=== PATIENT | female | born 1985 | race Caucasian/White ===

== ENCOUNTER 2016-12-14 22:57 | Emergency (ER) | payer MEDICAID ==
[2016-12-14 23:09] VITALS: BP 164/99; BMI 37.1
--- NOTE | 2016-12-14 23:28 | DR.GENAD ---
HPI - PCP Primary Care Physician: NFD - HPI Comment HPI Comment: PAIN GETTING WORSE. NO FEVER. NO DYSURIA. NAUSEATED BUT NO VOMITING. - Complaint/Symptoms Chief Complaint Doctors Comments: LOWER ABDOMINAL PAIN TIMES FEW DAYS, LEFT BREAST HAVE BEING HURTING LONGER. NO NIPPLE DRAINAGE. Chief Complaint:: PT STATES" FOR ABOUT 3 OR 4 DAYS MY LEFT SIDE OF MY CHEST FEELS LIKE IT HAS KNOTS IN IT AND MY STOMACH HAS BEEN CRAMPING" - Nurses notes reviewed Nurses Notes Review: Yes - Source History Provided: Patient - Mode of Arrival Mode of Arrival: Ambulatory - Timing Onset of Chief Complaint: 12/11/16 Came on: Gradually - Duration Duration: Constant Duration: Days - Severity Severity: Moderate PMH - PMH Past Medical History: Yes Past Medical History: Hypertension Past Surgical History: Yes Surgical History: - Family History History of Family Medical Conditions: Yes Family Medical History: Diabetes Mellitus, Cancer, Hypertension - Social History Alcohol Use: Occasionally Do you use any recreational Drugs:: No Lives With: Family Lives Where: Home - infectious screening In the last 2 months have you had wt loss of >10#?: NO Have you had fever, night sweats or hemotysis?: No Have you traveled outside the country in the last 6 months?: No Isolation: Standard ROS - Review of Systems Constitutional: No Symptoms Reported Eyes: No Symptoms Reported ENTM: No Symptoms Reported Respiratoy: Other (LEFT BREAST PAIN, NO NIPPLE DISCHARGE.) Cardiovascular: No Symptoms Reported Gastrointestinal/Abdominal: Abdominal Pain, Nausea. negative: Diarrhea, Vomiting Genitourinary: No Symptoms Reported. negative: Dysuria, Frequency, Hematuria Neurological: No Symptoms Reported Musculoskeletal: Muscle Pain Integumentary: Other (LEFT BREAST PAIN.) Hematologic/Lymphatic: No Symptoms Reported Endocrine: No Symptoms Reported All Other Systems: Reviewed and Negative PE - Vital Signs Vitals: Temperature 98.4 F Pulse Rate 106 Respiratory Rate 18 Blood Pressure 164/99 O2 Sat by Pulse Oximetry 98 - General Limitations: No Limitations General Appearance: Alert - Head Head Exam: Normal Inspection - Eyes Eye exam: Normal Appearance - ENT ENT Exam: Normal External Ear Exam TM/Canal Exam: Bilateral Normal Nose Exam: Normal Nose Exam Mouth Exam: Normal Inspection Throat Exam: Normal Inspection - Neck Neck Exam: Normal Inspection - Chest Chest Inspection: Symmetric Chest Wall Rise, Tenderness (TENDERNESS LEFT BREAST , NO NIPPLE DISCHARGE.) - Respiratory Respiratory Exam: Normal Lung Sounds Bilat Respiratory Exam: Bilateral Clear to Auscultation - Cardiovascular Cardiovascular Exam: Regular Rate, Normal Rhythm, Normal Heart Sounds - Abdominal Exam Abdominal Exam: Normal Bowel Sounds, Soft, Distention Abdominal Tenderness: RLQ, LLQ, Suprapubic, Mild - Extremities Extremities Exam: Normal Inspection - Back Back Exam: Normal Inspection - Neurologic Neurological Exam: Alert, Oriented X3 - Psychiatric Psychiatric Exam: Normal Affect, Normal Mood - Skin Skin Exam: Normal Color MDM - Differential Diagnosis Differential Diagnosis: ABDOMINAL PAIN, LEFT BREAST PAIN, UTI, KIDNEY STONE Course - Treatment Treatment: SEE ORDERS - Education/Counseling Education/Counseling: Patient, Education Educated On: Diagnosis, Needs for Follow Up ROR - Labs Reviewed Laboratory Results Reviewed?: Yes Result Diagrams: 12/14/16 23:45 12/14/16 23:45 Laboratory: WBC 9.2 X10^3/uL (3.6-10.0) 12/14/16 23:45 RBC 5.64 X10^6/uL (3.5-5.4) H 12/14/16 23:45 Hgb 15.9 g/dL (12.0-16.0) 12/14/16 23:45 Hct 47.4 % (36.0-47.0) H 12/14/16 23:45 MCV 84.0 fL (80.0-100.0) 12/14/16 23:45 MCH 28.2 pg (27.0-34.0) 12/14/16 23:45 MCHC 33.5 g/dL (33.0-35.0) 12/14/16 23:45 RDW 13.6 % (11.6-16.5) 12/14/16 23:45 Plt Count 206 X10^3/uL (150.0-450.0) 12/14/16 23:45 MPV 8.7 fL (7.4-11.0) 12/14/16 23:45 Neut % 66.1 % (42.0-75.0) 12/14/16 23:45 Lymph % 24.4 % (21.0-51.0) 12/14/16 23:45 [place] % 6.0 % (0.0-13.0) 12/14/16 23:45 Eos % 3.0 % (0.9-2.9) H 12/14/16 23:45 Baso % 0.5 % (0.2-1.0) 12/14/16 23:45 Neut # 6.1 x10^3/uL (2.2-4.8) H 12/14/16 23:45 Lymph # 2.2 X10^3/uL (1.3-2.9) 12/14/16 23:45 [place] # 0.5 x10^3/uL (0.3-0.8) 12/14/16 23:45 Eos # 0.3 x10^3/uL (0.0-0.2) H 12/14/16 23:45 Baso # 0.0 X10^3/uL (0.0-0.1) 12/14/16 23:45 Absolute Nucleated RBC 0.1 /100WBC 12/14/16 23:45 Sodium 141 mmol/L (136-145) 12/14/16 23:45 Corrected Sodium TNP 12/14/16 23:45 Potassium 3.8 mmol/L (3.5-5.1) 12/14/16 23:45 Chloride 103 mmol/L (98-107) 12/14/16 23:45 Carbon Dioxide 29.6 mmol/L (21-32) 12/14/16 23:45 BUN 14 mg/dL (7-18) 12/14/16 23:45 Creatinine 0.96 mg/dL (0.55-1.02) 12/14/16 23:45 Est GFR (MDRD) Af Amer > 60 (>60) 12/14/16 23:45 Est GFR (MDRD) Non-Af > 60 (>60) 12/14/16 23:45 Glucose 106 mg/dL (65-99) H 12/14/16 23:45 Calcium 9.2 mg/dL (8.5-10.1) 12/14/16 23:45 Corrected Calcium TNP 12/14/16 23:45 Total Bilirubin 0.50 mg/dL (0.2-1.0) 12/14/16 23:45 AST 23 Units/L (15-37) 12/14/16 23:45 ALT 28 Units/L (12-78) 12/14/16 23:45 Alkaline Phosphatase 83 Units/L (46-116) 12/14/16 23:45 Total Protein 8.9 g/dL (6.4-8.2) H 12/14/16 23:45 Albumin 4.1 g/dL (3.4-5.0) 12/14/16 23:45 Globulin 4.8 g/dL (2.5-4.5) H 12/14/16 23:45 Albumin/Globulin Ratio 0.9 Ratio (1.1-2.1) L 12/14/16 23:45 HCG, Qual Negative <10 mIU/mL 12/14/16 23:45 Specimen Type Clean catch urine 12/14/16 23:40 Urine Color Yellow (YELLOW) 12/14/16 23:40 Urine Appearance Cloudy (CLEAR) 12/14/16 23:40 Urine pH 6.0 (5.0 - 8.0) 12/14/16 23:40 Ur Specific [place] 1.020 (1.000-1.030) 12/14/16 23:40 Urine Protein 1+ (NEGATIVE) 12/14/16 23:40 Urine Glucose (UA) Negative (NEGATIVE) 12/14/16 23:40 Urine Ketones Negative (NEGATIVE) 12/14/16 23:40 Urine Occult Blood 2+ (NEGATIVE) 12/14/16 23:40 Urine Nitrite Negative (NEGATIVE) 12/14/16 23:40 Urine Bilirubin Negative (NEGATIVE) 12/14/16 23:40 Urine Urobilinogen 1+ (NORMAL) 12/14/16 23:40 Ur Leukocyte Esterase 3+ (NEGATIVE) 12/14/16 23:40 Urine RBC 3-5 /HPF (NEGATIVE) 12/14/16 23:40 Urine WBC 10-15 /HPF (NEGATIVE) 12/14/16 23:40 Ur Squamous Epith Cells Moderate /HPF (NEGATIVE) 12/14/16 23:40 Urine Bacteria 1+ /HPF (NEGATIVE) 12/14/16 23:40 Ur Culture Indicated? Yes/culture set up 12/14/16 23:40 - Diagnosis Discharge Problem: UTI (urinary tract infection), Mastitis - Discharge Plan Disposition: 01 HOME, SELF-CARE Condition: Stable Prescriptions: Ibuprofen [Motrin Tab 800 mg] 800 mg PO BID PRN #20 tab PRN Reason: Pain/Inflammation Sulfamethoxazole-Trimethoprim [BACTRIM DS TAB 800/160 MG *] 1 tab PO BID #20 tab - Follow ups/Referrals Follow ups/Referrals: NFD,None [Primary Care Provider] - 3 days - Instructions Instructions: Urinary Tract Infection, Mastitis, [id number] Additional Instructions: RETURN TO ED IF WORSE.
[2016-12-14 23:59] LABS: BASOPHILS % (AUTO) 0.5 % (0.2-1.0); EOSINOPHILS # (AUTO) 0.3 x10^3/uL (0.0-0.2); HEMATOCRIT 47.4 % (36.0-47.0); HEMOGLOBIN 15.9 g/dL (12.0-16.0); LYMPHOCYTES # (AUTO) 2.2 X10^3/uL (1.3-2.9); LYMPHOCYTES % (AUTO) 24.4 % (21.0-51.0); MEAN CORPUSCULAR HEMOGLOBIN 28.2 pg (27.0-34.0); MEAN CORPUSCULAR HGB CONC 33.5 g/dL (33.0-35.0); MEAN PLATELET VOLUME 8.7 fL (7.4-11.0); MONOCYTES # (AUTO) 0.5 x10^3/uL (0.3-0.8); NEUTROPHILS # (AUTO) 6.1 x10^3/uL (2.2-4.8); NEUTROPHILS % (AUTO) 66.1 % (42.0-75.0); PLATELET COUNT 206 X10^3/uL (150.0-450.0); RED BLOOD COUNT 5.64 X10^6/uL (3.5-5.4); RED CELL DISTRIBUTION WIDTH 13.6 % (11.6-16.5); WHITE BLOOD COUNT 9.2 X10^3/uL (3.6-10.0)
[2016-12-15 00:01] LABS: BILIRUBIN,URINE NEGATIVE (NEGATIVE); BLOOD/HEMOGLOBIN,URINE 2+ (NEGATIVE); GLUCOSE, URINE NEGATIVE (NEGATIVE); KETONES,URINE NEGATIVE (NEGATIVE); LEUKOCYTE ESTERASE ,URINE 3+ (NEGATIVE); NITRITES,URINE NEGATIVE (NEGATIVE); PROTEIN,URINE 1+ (NEGATIVE); UROBILINOGEN,URINE 1+ (NORMAL)
[2016-12-15 00:02] LABS: APPEARANCE,URINE CLOUDY (CLEAR); COLOR,URINE YELLOW (YELLOW)
[2016-12-15 00:07] LABS: BACTERIA,URINE 1+ /HPF (NEGATIVE); SQUAMOUS EPITHELIAL CELL,UR MODERATE /HPF (NEGATIVE)
[2016-12-15 00:08] LABS: ALANINE AMINOTRANSFERASE 28 Units/L (12-78); ALBUMIN 4.1 g/dL (3.4-5.0); ALKALINE PHOSPHATASE 83 Units/L (46-116); BLOOD UREA NITROGEN 14 mg/dL (7-18); CALCIUM 9.2 mg/dL (8.5-10.1); CARBON DIOXIDE 29.6 mmol/L (21-32); CHLORIDE 103 mmol/L (98-107); CREATININE 0.96 mg/dL (0.55-1.02); GLUCOSE 106 mg/dL (65-99); SERUM PREGNANCY TEST, QUAL NEGATIVE <10 mIU/mL; SODIUM 141 mmol/L (136-145); TOTAL PROTEIN 8.9 g/dL (6.4-8.2); eGFR BLACK RACES > 60 (>60); eGFR NON BLACK RACES > 60 (>60)
[2016-12-15 00:28] LABS: ASPARTATE AMINO TRANSFERASE 23 Units/L (15-37)
== END 2016-12-15 01:40 | disposition home or self-care (01) ==
LOC: ER 23:08
DX: N61.0 Mastitis without abscess (principal); N39.0 Urinary tract infection, site not specified
CPT/HCPCS: 36415; 80053; 81001; 84703; 85025; 87086; 99282; 99283

== ENCOUNTER 2016-12-26 16:33 | Emergency (ER) | payer MEDICAID ==
[2016-12-26 16:36] VITALS: BMI 37.1
--- NOTE | 2016-12-26 18:03 | DR.GENAD ---
HPI - PCP Primary Care Physician: NLD - Complaint/Symptoms Chief Complaint Doctors Comments: Patient states she just found out she is a few days and she has been spotting today when she wipes. States she is only having light spotting and it is less than her normal period. States she has not seen an OB doctor and she smokes 1/2 pack cigarettes daily and drink alcohol occasionally. She denies any recent trauma and states last sexual activity was about week ago. States her last menstrual period was two months ago. She denies dizziness, chest pain or SOb. Chief Complaint:: PATIENT IS EARLY PREG. AND STARTED TO HAVIN SOME SPOTTING THIS MORNING - Nurses notes reviewed Nurses Notes Review: Yes - Source History Provided: Patient - Mode of Arrival Mode of Arrival: Ambulatory - Timing Onset of Chief Complaint: 12/26/16 Came on: Gradually - Duration Duration: Intermittent How lon Duration: Days - Location Location: vaginal spotting - Severity Severity: Mild - Modifying Factors Worsens:: nothing Improves:: nothing PMH - PMH Past Medical History: Yes Past Medical History: Hypertension Past Surgical History: Yes Surgical History: - Family History History of Family Medical Conditions: Yes Family Medical History: Diabetes Mellitus, Cancer, Hypertension - Social History Does patient currently use any type of tobacco product: Yes Have you used tobacco products in the last 12 months: Yes Type of Tobacco Use: Cigarettes Does any household member use tobacco: No Alcohol Use: Occasionally Do you use any recreational Drugs:: No Lives With: Family Lives Where: Home - infectious screening In the last 2 months have you had wt loss of >10#?: NO Have you had fever, night sweats or hemotysis?: No Have you traveled outside the country in the last 6 months?: No Isolation: Standard ROS - Review of Systems Constitutional: No Symptoms Reported. negative: See HPI, Chills, Diaphoresis, Fever, Malaise, Weakness, Irritable, Fatigue, Loss of Appetite, Other Eyes: No Symptoms Reported ENTM: No Symptoms Reported Respiratoy: No Symptoms Reported Cardiovascular: No Symptoms Reported Gastrointestinal/Abdominal: No Symptoms Reported Genitourinary: No Symptoms Reported Neurological: No Symptoms Reported Musculoskeletal: No Symptoms Reported Integumentary: No Symptoms Reported Hematologic/Lymphatic: No Symptoms Reported Endocrine: No Symptoms Reported Psychiatric: No Symptoms Reported PE - Vital Signs Vitals: Temperature 98.7 F Pulse Rate 104 Respiratory Rate 20 Blood Pressure 166/107 O2 Sat by Pulse Oximetry 97 - General Limitations: No Limitations General Appearance: Alert, In No Apparent Distress, Obtunded - Head Head Exam: Normal Inspection, Atraumatic, Normocephalic - Eyes Eye exam: Normal Appearance, PERRL, EOMI. negative: Scleral Icterus, Conjunctival Injection, Nystagmus, Miosis, Mydrasis, Periorbital Swelling, Periorbital Tenderness, Other - ENT ENT Exam: Normal Exam, Normal Oropharynx, Normal External Ear Exam, Mucous Membranes Moist, TM's Normal Bilaterally External Ear Exam: Normal External Inspection TM/Canal Exam: Bilateral Normal Nose Exam: Normal Nose Exam Mouth Exam: Normal Inspection Throat Exam: Normal Inspection - Neck Neck Exam: Normal Inspection, Full ROM, Trachea Midline - Chest Chest Inspection: Normal Inspection, Symmetric Chest Wall Rise - Respiratory Respiratory Exam: Normal Lung Sounds Bilat Respiratory Exam: Bilateral Clear to Auscultation - Cardiovascular Cardiovascular Exam: Regular Rate, Normal Rhythm, Normal Heart Sounds - Abdominal Exam Abdominal Exam: Normal Inspection, Normal Bowel Sounds, Soft. negative: Distention, Tenderness, Guarding, Rebound, Rigidity, Dimnished Bowel Sounds, Hyperactive Bowel Sounds, Hypoactive Bowel Sounds, Organomegaly, Trauma, Incision, Ascites, Mass, Bruit, Pulsatile Mass, Hernia, Other Abdominal Tenderness: negative: RUQ, RLQ, LUQ, LLQ, Epigastrium, Suprapubic, Diffuse, Mild, Moderate, Severe, Other - Extremities Extremities Exam: Normal Inspection, Full ROM, Tenderness, Normal Capillary Refill - Neurologic Neurological Exam: Alert, Oriented X3, CN II-XII Intact, Normal Gait - Psychiatric Psychiatric Exam: Normal Affect, Normal Mood ROR - Labs Reviewed Laboratory Results Reviewed?: Yes (All labs results reviewed and discussed with patient.) Result Diagrams: 12/26/16 18:10 Laboratory: WBC 8.7 X10^3/uL (3.6-10.0) 12/26/16 18:10 RBC 5.34 X10^6/uL (3.5-5.4) 12/26/16 18:10 Hgb 14.9 g/dL (12.0-16.0) 12/26/16 18:10 Hct 43.9 % (36.0-47.0) 12/26/16 18:10 MCV 82.3 fL (80.0-100.0) 12/26/16 18:10 MCH 28.0 pg (27.0-34.0) 12/26/16 18:10 MCHC 34.0 g/dL (33.0-35.0) 12/26/16 18:10 RDW 13.8 % (11.6-16.5) 12/26/16 18:10 Plt Count 225 X10^3/uL (150.0-450.0) 12/26/16 18:10 MPV 8.8 fL (7.4-11.0) 12/26/16 18:10 Neut % 67.4 % (42.0-75.0) 12/26/16 18:10 Lymph % 22.9 % (21.0-51.0) 12/26/16 18:10 [place] % 7.4 % (0.0-13.0) 12/26/16 18:10 Eos % 1.5 % (0.9-2.9) 12/26/16 18:10 Baso % 0.8 % (0.2-1.0) 12/26/16 18:10 Neut # 5.9 x10^3/uL (2.2-4.8) H 12/26/16 18:10 Lymph # 2.0 X10^3/uL (1.3-2.9) 12/26/16 18:10 [place] # 0.6 x10^3/uL (0.3-0.8) 12/26/16 18:10 Eos # 0.1 x10^3/uL (0.0-0.2) 12/26/16 18:10 Baso # 0.1 X10^3/uL (0.0-0.1) 12/26/16 18:10 Absolute Nucleated RBC 0.1 /100WBC 12/26/16 18:10 HCG, Quant 327 mIU/mL (0-6) H 12/26/16 18:10 Specimen Type Clean catch urine 12/26/16 18:37 Urine Color Yellow (YELLOW) 12/26/16 18:37 Urine Appearance Clear (CLEAR) 12/26/16 18:37 Urine pH 5.0 (5.0 - 8.0) 12/26/16 18:37 Ur Specific [place] 1.025 (1.000-1.030) 12/26/16 18:37 Urine Protein 2+ (NEGATIVE) 12/26/16 18:37 Urine Glucose (UA) Negative (NEGATIVE) 12/26/16 18:37 Urine Ketones 1+ (NEGATIVE) 12/26/16 18:37 Urine Occult Blood 3+ (NEGATIVE) 12/26/16 18:37 Urine Nitrite Negative (NEGATIVE) 12/26/16 18:37 Urine Bilirubin Negative (NEGATIVE) 12/26/16 18:37 Urine Urobilinogen 2+ (NORMAL) 12/26/16 18:37 Ur Leukocyte Esterase 3+ (NEGATIVE) 12/26/16 18:37 Urine RBC 03 - 06 /HPF (NEGATIVE) 12/26/16 18:37 Urine WBC 04 - 08 /HPF (NEGATIVE) 12/26/16 18:37 Ur Squamous Epith Cells Numerous /HPF (NEGATIVE) 12/26/16 18:37 Amorphous Sediment 3+ /HPF (NEGATIVE) 12/26/16 18:37 Urine Bacteria 1+ /HPF (NEGATIVE) 12/26/16 18:37 Hyaline Casts Rare /LPF (NEGATIVE) 12/26/16 18:37 Ur Culture Indicated? No/not indicated 12/26/16 18:37 - Diagnosis Discharge Problem: Early stage of , Bleeding in early , Urinary tract infection , Tobacco abuse - Discharge Plan Disposition: 01 HOME, SELF-CARE Condition: Stable Prescriptions: Amoxicillin [AMOXIL CAP 500 MG *] 500 mg PO TID #30 cap - Follow ups/Referrals Follow ups/Referrals: NFD,None [Primary Care Provider] - 3 days ANGÉLICA LANDEROS [STAFF PHYSICIAN] - 3 days - Instructions Instructions: Urinary Tract Infection, Threatened Miscarriage, Vaginal Bleeding During , First Trimester, and Urinary Tract Infection
[2016-12-26 18:24] LABS: BASOPHILS # (AUTO) 0.1 X10^3/uL (0.0-0.1); BASOPHILS % (AUTO) 0.8 % (0.2-1.0); EOSINOPHILS # (AUTO) 0.1 x10^3/uL (0.0-0.2); EOSINOPHILS % (AUTO) 1.5 % (0.9-2.9); HEMATOCRIT 43.9 % (36.0-47.0); HEMOGLOBIN 14.9 g/dL (12.0-16.0); LYMPHOCYTES % (AUTO) 22.9 % (21.0-51.0); MEAN CORPUSCULAR VOLUME 82.3 fL (80.0-100.0); MEAN PLATELET VOLUME 8.8 fL (7.4-11.0); MONOCYTES # (AUTO) 0.6 x10^3/uL (0.3-0.8); MONOCYTES % (AUTO) 7.4 % (0.0-13.0); NEUTROPHILS # (AUTO) 5.9 x10^3/uL (2.2-4.8); NEUTROPHILS % (AUTO) 67.4 % (42.0-75.0); PLATELET COUNT 225 X10^3/uL (150.0-450.0); RED BLOOD COUNT 5.34 X10^6/uL (3.5-5.4); RED CELL DISTRIBUTION WIDTH 13.8 % (11.6-16.5); WHITE BLOOD COUNT 8.7 X10^3/uL (3.6-10.0)
[2016-12-26 18:50] LABS: BILIRUBIN,URINE NEGATIVE (NEGATIVE); BLOOD/HEMOGLOBIN,URINE 3+ (NEGATIVE); GLUCOSE, URINE NEGATIVE (NEGATIVE); KETONES,URINE 1+ (NEGATIVE); LEUKOCYTE ESTERASE ,URINE 3+ (NEGATIVE); NITRITES,URINE NEGATIVE (NEGATIVE); PROTEIN,URINE 2+ (NEGATIVE); UROBILINOGEN,URINE 2+ (NORMAL)
[2016-12-26 19:12] LABS: APPEARANCE,URINE CLEAR (CLEAR); COLOR,URINE YELLOW (YELLOW)
[2016-12-26 19:13] LABS: AMORPHOUS SEDIMENT,UR 3+ /HPF (NEGATIVE); BACTERIA,URINE 1+ /HPF (NEGATIVE); SQUAMOUS EPITHELIAL CELL,UR NUMEROUS /HPF (NEGATIVE)
[2016-12-26 19:14] LABS: HYALINE CASTS, URINE RARE /LPF (NEGATIVE)
[2016-12-26 19:34] VITALS: BP 151/79
== END 2016-12-26 19:34 | disposition home or self-care (01) ==
LOC: ER 16:48
DX: O20.8 Other hemorrhage in early pregnancy (principal); Z3A.00 Weeks of gestation of pregnancy not specified; N39.0 Urinary tract infection, site not specified; Z72.0 Tobacco use
CPT/HCPCS: 36415; 81001; 84702; 85025; 99283

== ENCOUNTER 2016-12-29 20:08 | Emergency (ER) | payer MEDICAID ==
[2016-12-29 20:17] VITALS: BP 161/106; BMI 36.3
--- NOTE | 2016-12-29 21:14 | DR.GENAD ---
HPI - PCP Primary Care Physician: BALDEMAR - HPI Comment HPI Comment: PATIENT WAS SEEN AND EVALUATED IN ED 12/26/2016 FOR SAME SYMTOMS. HERE BECAUSE BLEEDING CONTINUE. SHE IS SCHEDULE TO SEE OB IN AM. NAUSEATED BUT NOT VOMITING. - Complaint/Symptoms Chief Complaint Doctors Comments: PATIENT IS 4 TO 6 WEEKS PREDNANT AND HAVING MILD ABDOMINAL PAIN AND VAGINAL BLEEDING. TIMEES 5 DAYS. Chief Complaint:: PATIENT IS AND EXPERIENCEING SOME BLEEDING - Nurses notes reviewed Nurses Notes Review: Yes - Source History Provided: Patient - Mode of Arrival Mode of Arrival: Ambulatory - Timing Onset of Chief Complaint: 12/24/16 Came on: Gradually - Duration Duration: Constant Duration: Days - Severity Severity: Moderate PMH - PMH Past Medical History: Yes Past Medical History: Hypertension Past Surgical History: Yes Surgical History: - Family History History of Family Medical Conditions: Yes Family Medical History: Diabetes Mellitus, Cancer, Hypertension - Social History Does patient currently use any type of tobacco product: Yes Have you used tobacco products in the last 12 months: Yes Type of Tobacco Use: Cigarettes Does any household member use tobacco: No Alcohol Use: None Do you use any recreational Drugs:: No Lives With: Family Lives Where: Home - infectious screening In the last 2 months have you had wt loss of >10#?: NO Have you had fever, night sweats or hemotysis?: No Have you traveled outside the country in the last 6 months?: No Isolation: Standard ROS - Review of Systems Constitutional: No Symptoms Reported Eyes: No Symptoms Reported ENTM: No Symptoms Reported Respiratoy: No Symptoms Reported Cardiovascular: No Symptoms Reported Gastrointestinal/Abdominal: Abdominal Pain, Nausea Genitourinary: Pain, Bleeding Neurological: No Symptoms Reported Musculoskeletal: No Symptoms Reported Integumentary: No Symptoms Reported Hematologic/Lymphatic: No Symptoms Reported Endocrine: No Symptoms Reported All Other Systems: Reviewed and Negative PE - Vital Signs Vitals: Temperature 98.1 F Pulse Rate 84 Respiratory Rate 16 Blood Pressure [Left Arm] 151/79 Blood Pressure 161/106 O2 Sat by Pulse Oximetry 99 - General Limitations: No Limitations General Appearance: Alert - Head Head Exam: Normal Inspection - Eyes Eye exam: Normal Appearance - ENT ENT Exam: Normal External Ear Exam External Ear Exam: Normal External Inspection TM/Canal Exam: Bilateral Normal Nose Exam: Normal Nose Exam Mouth Exam: Normal Inspection Throat Exam: Normal Inspection - Neck Neck Exam: Normal Inspection - Chest Chest Inspection: Symmetric Chest Wall Rise - Respiratory Respiratory Exam: Normal Lung Sounds Bilat Respiratory Exam: Bilateral Clear to Auscultation - Cardiovascular Cardiovascular Exam: Regular Rate, Normal Rhythm, Normal Heart Sounds - Abdominal Exam Abdominal Exam: Normal Bowel Sounds, Soft. negative: Tenderness - Extremities Extremities Exam: Normal Inspection - Back Back Exam: Normal Inspection - Neurologic Neurological Exam: Alert, Oriented X3 - Psychiatric Psychiatric Exam: Normal Affect - Skin Skin Exam: Normal Color MDM - Differential Diagnosis Differential Diagnosis: VAGINAL BLEEDING DURING , ABDOMINAL PAIN DURING Course - Treatment Treatment: SEE ORDERS - Education/Counseling Education/Counseling: Patient, Education Educated On: Diagnosis, Needs for Follow Up ROR - Labs Reviewed Laboratory Results Reviewed?: Yes Result Diagrams: 12/29/16 21:24 Laboratory: WBC 8.6 X10^3/uL (3.6-10.0) 12/29/16 21:24 RBC 5.19 X10^6/uL (3.5-5.4) 12/29/16 21:24 Hgb 14.7 g/dL (12.0-16.0) 12/29/16 21:24 Hct 43.4 % (36.0-47.0) 12/29/16 21:24 MCV 83.6 fL (80.0-100.0) 12/29/16 21:24 MCH 28.2 pg (27.0-34.0) 12/29/16 21:24 MCHC 33.8 g/dL (33.0-35.0) 12/29/16 21:24 RDW 13.7 % (11.6-16.5) 12/29/16 21:24 Plt Count 200 X10^3/uL (150.0-450.0) 12/29/16 21:24 MPV 9.3 fL (7.4-11.0) 12/29/16 21:24 Neut % 71.0 % (42.0-75.0) 12/29/16 21:24 Lymph % 21.6 % (21.0-51.0) 12/29/16 21:24 [place] % 5.2 % (0.0-13.0) 12/29/16 21:24 Eos % 1.7 % (0.9-2.9) 12/29/16 21:24 Baso % 0.5 % (0.2-1.0) 12/29/16 21:24 Neut # 6.1 x10^3/uL (2.2-4.8) H 12/29/16 21:24 Lymph # 1.9 X10^3/uL (1.3-2.9) 12/29/16 21:24 [place] # 0.4 x10^3/uL (0.3-0.8) 12/29/16 21:24 Eos # 0.1 x10^3/uL (0.0-0.2) 12/29/16 21:24 Baso # 0.0 X10^3/uL (0.0-0.1) 12/29/16 21:24 Absolute Nucleated RBC 0.0 /100WBC 12/29/16 21:24 HCG, Quant 755 mIU/mL (0-6) H 12/29/16 21:24 - Diagnosis Discharge Problem: Vaginal bleeding before 22 weeks gestation - Discharge Plan Condition: Stable - Follow ups/Referrals Follow ups/Referrals: NFD,None [Primary Care Provider] - 3 days ANGÉLICA LANDEROS [STAFF PHYSICIAN] - 12/30/16 - Instructions Instructions: Abdominal Pain During , [id number], Vaginal Bleeding During , First Trimester, Pelvic Rest Additional Instructions: RETURN TO ED IF WORSE.
[2016-12-29 21:39] LABS: BASOPHILS % (AUTO) 0.5 % (0.2-1.0); EOSINOPHILS # (AUTO) 0.1 x10^3/uL (0.0-0.2); EOSINOPHILS % (AUTO) 1.7 % (0.9-2.9); HEMATOCRIT 43.4 % (36.0-47.0); HEMOGLOBIN 14.7 g/dL (12.0-16.0); LYMPHOCYTES # (AUTO) 1.9 X10^3/uL (1.3-2.9); LYMPHOCYTES % (AUTO) 21.6 % (21.0-51.0); MEAN CORPUSCULAR HEMOGLOBIN 28.2 pg (27.0-34.0); MEAN CORPUSCULAR HGB CONC 33.8 g/dL (33.0-35.0); MEAN CORPUSCULAR VOLUME 83.6 fL (80.0-100.0); MEAN PLATELET VOLUME 9.3 fL (7.4-11.0); MONOCYTES # (AUTO) 0.4 x10^3/uL (0.3-0.8); MONOCYTES % (AUTO) 5.2 % (0.0-13.0); NEUTROPHILS # (AUTO) 6.1 x10^3/uL (2.2-4.8); PLATELET COUNT 200 X10^3/uL (150.0-450.0); RED BLOOD COUNT 5.19 X10^6/uL (3.5-5.4); RED CELL DISTRIBUTION WIDTH 13.7 % (11.6-16.5); WHITE BLOOD COUNT 8.6 X10^3/uL (3.6-10.0)
== END 2016-12-29 22:30 | disposition home or self-care (01) ==
LOC: ER 20:20
DX: O20.8 Other hemorrhage in early pregnancy (principal)
CPT/HCPCS: 36415; 84702; 85025; 99282